=== PATIENT | female | born 1935 | race Hispanic/Latino ===

== ENCOUNTER 2021-05-28 10:00 | Outpatient (CLI) | payer MEDICARE ==
--- NOTE | 2021-05-28 12:00 | Mammography Report ---
DIGITAL SCREENING MAMMOGRAM WITH CAD, 05/28/2021 CLINICAL INFORMATION / INDICATION: Routine screening mammography. SCREENING MAMMO Z12.31 TECHNIQUE: Digital bilateral 2D mammography was obtained in the craniocaudal and mediolateral obliqu e projections. This examination was interpreted with the benefit of Computer-Aided Detection analysis . COMPARISON: 05/18/2018 through 05/25/2020. FINDINGS: Breast Density: The breasts are heterogeneously dense, which may obscure small masses. No dominant mass, suspicious calcifications, or architectural distortion in either breast. There are benign calcifications bilaterally, including mild breast arterial calcifications on the lef t. Left breast scarring is again noted. No new abnormality is seen. IMPRESSION: No mammographic evidence of malignancy. Follow up recommendation: Routine yearly BI-RADS Category 2: Benign. A "normal" or negative report should not discourage follow up or biopsy of a clinically significant f inding. A written summary of these findings will be mailed to the patient. The patient will be entered into a mammography reporting system which will generate a reminder letter for the patient's next appointmen t at the appropriate interval. The [employer] recommends yearly mammograms starting at age 40 and continuing as l ivy as a woman is in good health. Breast MRI is recommended for women with an approximate 20-25% or greater lifetime risk of breast cancer, including women with a strong family history of breast or ova sheng cancer or who have been treated for Hodgkin's disease. Signer Name: Ramu Rodriguez MD Signed: 05/28/2021 11:56 AM Workstation Name: [employer]
== END 2021-05-28 10:01 | disposition home or self-care (01) ==
LOC: SPVWC 10:00
PROVIDERS: ATTEND Surgery
DX: Z12.31 Encounter for screening mammogram for malignant neoplasm of breast (principal); N64.89 Other specified disorders of breast
CPT/HCPCS: 77067